=== PATIENT | male | born 1970 | race Caucasian/White ===

== ENCOUNTER → 2021-10-20 | Outpatient (CLI) | payer OTHER | LOC: KOH-I 12:05 | DX: R06.02 Shortness of breath (principal) | CPT/HCPCS: 71046 ==

== ENCOUNTER 2022-01-11 14:21 | Emergency (ER) | payer OTHER ==
[2022-01-11 15:20] LABS: HEMOGLOBIN 16.5 gm/dl (14.0-17.5); RED BLOOD COUNT 5.43 M/UL (4.20-5.50); WHITE BLOOD COUNT 7.9 K/UL (4.5-11.0)
[2022-01-11 15:57] LABS: BUN/CREATININE RATIO 16 (0-10)
== END 2022-01-11 16:57 | disposition home or self-care (01) ==
LOC: ER1 14:21
PROVIDERS: Emergency Medicine
DX: R55 Syncope and collapse (principal); I45.10 Unspecified right bundle-branch block; I10 Essential (primary) hypertension; Z86.19 Personal history of other infectious and parasitic diseases
CPT/HCPCS: 71045; 80053; 84484; 85025; 93005; 99284

== ENCOUNTER → 2022-04-01 | Outpatient (CLI) | payer OTHER | LOC: KOH-I 10:38 | DX: M50.322 Other cervical disc degeneration at C5-C6 level (principal); M79.641 Pain in right hand; M79.642 Pain in left hand | CPT/HCPCS: 72040 ==

== ENCOUNTER → 2022-04-19 | Outpatient (CLI) | payer OTHER | LOC: EMI 09:52 | DX: M75.122 Complete rotator cuff tear or rupture of left shoulder, not specified as traumatic (principal) | CPT/HCPCS: 73221 ==